=== PATIENT | female | born 1960 | race Caucasian/White ===

== ENCOUNTER → 2020-03-19 12:09 | Outpatient (CLI) | payer SELFPAY ==
[2020-03-19 12:30] LABS: Basophils # 0.1 K/mm3 (0-0.2); Basophils % 0.8 % (0.1-2.0); Eosinophils # 0.4 K/mm3 (0.0-0.4); Eosinophils % 6.7 % (0.1-12.0); Hematocrit 44.4 % (37.0-47.0); Hemoglobin 15.1 g/dL (12.2-16.2); Lymphocytes # 1.9 K/mm3 (0.7-4.5); Lymphocytes % 33.6 % (10-50); Mean Corpuscular HGB Conc 34.1 g/dL (31.8-35.4); Mean Corpuscular Hemoglobin 31.7 pg (27.0-31.2); Mean Platelet Volume 7.4 fl (7.4-10.4); Monocytes # 0.3 K/mm3 (0.1-1.0); Monocytes % 5.5 % (1.7-9.3); Neutrophils # 3.1 K/mm3 (1.8-7.8); Neutrophils % 53.5 % (37.0-80.0); Platelet Count 299 K/mm3 (142-424); Red Blood Count 4.77 M/mm3 (4.20-5.40); Red Cell Distribution Width 13.4 % (11.5-17.5); White Blood Count 5.7 K/mm3 (4.8-10.8)
[2020-03-19 13:04] LABS: Chloride 104 mmol/L (98-107); Potassium 4.2 mmoL/L (3.5-5.1); Sodium 141 mmol/L (136-145)
[2020-03-19 13:06] LABS: Alanine Aminotransferase 11 U/L (12-78); Aspartate Amino Transferase 22 U/L (14-36); Bilirubin,Total 0.9 mg/dl (0.2-1.3); Blood Urea Nitrogen 10 mg/dl (7-17); Estimated Glomerular Filt Rate 86 ml/min (>60); GFR (African American) 104 ML/MIN (>60)
[2020-03-19 13:07] LABS: Albumin Level 4.5 g/dl (3.5-5.0); Albumin/Globulin Ratio 1.4 (1.1-1.8); Alkaline Phosphatase 89 U/L (38-126); Anion Gap 12.2 mEq/L (5-15); Calcium 9.3 mg/dl (8.4-10.2); Carbon Dioxide 29 mmol/L (22.0-30.0); Globulin 3.2 g/dL (1.3-3.2); Glucose 87 mg/dl (74-100); Iron 126 ug/dL (37-170); Total Protein,Serum 7.7 g/dl (6.3-8.2)
[2020-03-19 13:16] LABS: Total Iron Binding Capacity 381 ug/dL (265-497)
[2020-03-19 18:51] LABS: Ferritin 21.2 ng/ml (11.1-264)
[2020-03-20 15:32] LABS: Vitamin B12 798 pg/mL (232-1245)
== END ==
PROVIDERS: Visit Provider Nurse Practitioner Family
DX: E83.10 Disorder of iron metabolism, unspecified (principal); I10 Essential (primary) hypertension; E83.19 Other disorders of iron metabolism
CPT/HCPCS: 36415; 80053; 82607; 82728; 83540; 83550; 85025

== ENCOUNTER → 2020-08-07 16:43 | Outpatient (CLI) | payer MEDICAID, SELFPAY ==
[2020-08-07 20:48] LABS: Coronavirus 19 IgG Antibody Negative (Negative); Coronavirus 19 IgM Antibody Negative (Negative)
== END ==
PROVIDERS: PCP Nurse Practitioner Family; Visit Provider Nurse Practitioner Family
DX: Z03.818 Encounter for observation for suspected exposure to other biological agents ruled out (principal)
CPT/HCPCS: 36415; 86328

== ENCOUNTER → 2021-03-29 13:30 | Outpatient (CLI) | payer SELFPAY ==
[2021-04-01 07:34] LABS: QuantiFERON-TB Gold Plus Negative (Negative)
== END ==
PROVIDERS: Visit Provider Emergency Medicine
DX: Z11.1 Encounter for screening for respiratory tuberculosis (principal)
CPT/HCPCS: 36415; 86480

== ENCOUNTER → 2022-11-24 09:04 | Outpatient (CLI) | payer OTHER, SELFPAY ==
--- NOTE | 2022-11-24 09:04 | XR_ITS ---
FINAL REPORT TECHNIQUE: Bone densitometry calculations of the lumbar spine and hips were obtained. CLINICAL HISTORY: post menopausal FINDINGS: DEXA BONE DENSITY AXIAL SKELETON Using L1-4, the bone mineral density of the spine is 0.909 g/cm2, corresponding to T-score of -1.3. Using the left hip, the bone mineral density of the femoral neck is 0.704 g/cm2, corresponding to a T-score of -1.3. Using the right hip, the bone mineral density of the femoral neck is 0.702 g/cm2, corresponding to a T-score of -1.3. NOTE: T-score: Standard deviation compared with peak bone mass of young adult mean. *Following the recommendations of the International Society of Bone densitometry, classification of hip BMD is based on the lower of two T-scores; total hip or femoral neck. IMPRESSION: Diminished bone mineral density of the lumbar spine and hips consistent with osteopenia. FRAX not reported because: Treated for osteoporosis. Reviewed, Interpreted and Dictated by Donald Swanson MD Transcribed by Kate Humphreys Authenticated and [facility]
== END ==
PROVIDERS: PCP Nurse Practitioner Family; Visit Provider Obstetrics & Gynecology
DX: Z78.0 Asymptomatic menopausal state (principal)
CPT/HCPCS: 77080

== ENCOUNTER → 2022-12-15 14:47 | Outpatient (CLI) | payer OTHER, SELFPAY ==
[2022-12-15 15:23] LABS: Basophils # 0.1 K/mm3 (0-0.2); Basophils % 0.7 % (0.1-2.0); Eosinophils # 0.8 K/mm3 (0.0-0.4); Eosinophils % 12.7 % (0.1-12.0); Hematocrit 44.6 % (37.0-47.0); Hemoglobin 14.9 g/dL (12.2-16.2); Lymphocytes # 1.7 K/mm3 (0.7-4.5); Lymphocytes % 25.8 % (10-50); Mean Corpuscular HGB Conc 33.5 g/dL (31.8-35.4); Mean Corpuscular Hemoglobin 30.9 pg (27.0-31.2); Mean Corpuscular Volume 92.3 fl (81-99); Mean Platelet Volume 7.8 fl (7.4-10.4); Monocytes # 0.4 K/mm3 (0.1-1.0); Monocytes % 6.5 % (1.7-9.3); Neutrophils # 3.6 K/mm3 (1.8-7.8); Neutrophils % 54.2 % (37.0-80.0); Platelet Count 287 K/mm3 (142-424); Red Blood Count 4.83 M/mm3 (4.20-5.40); White Blood Count 6.5 K/mm3 (4.8-10.8)
[2022-12-15 15:34] LABS: Chol/HDL Ratio 3.1 (1-3.5); Cholesterol 200 mg/dl (140-200); HDL Cholesterol 64 mg/dl (40-60); Triglycerides 80 mg/dl (30-150); VLDL Cholesterol 16 mg/dL (0-40)
[2022-12-15 15:46] LABS: Direct LDL Cholesterol 108.79 mg/dL (100-129)
[2022-12-15 16:21] LABS: Iron 108 ug/dL (37-170)
[2022-12-15 16:30] LABS: Total Iron Binding Capacity 309 ug/dL (265-497)
[2022-12-15 16:48] LABS: Vitamin B12 > 1000 pg/mL (239-931)
[2022-12-15 16:57] LABS: Ferritin 37.4 ng/ml (11.1-264)
== END ==
PROVIDERS: PCP Nurse Practitioner Family; Visit Provider Obstetrics & Gynecology
DX: Z00.00 Encounter for general adult medical examination without abnormal findings (principal)
CPT/HCPCS: 36415; 80061; 82607; 82728; 83540; 83550; 85025

== ENCOUNTER 2023-11-20 19:10 | Outpatient (CLI) | payer OTHER, SELFPAY ==
[2023-11-20 18:40] LABS: Basophils # 0.1 K/mm3 (0-0.2); Basophils % 0.9 % (0.1-2.0); Eosinophils # 1.1 K/mm3 (0.0-0.4); Eosinophils % 15.7 % (0.1-12.0); Hematocrit 47.1 % (37.0-47.0); Hemoglobin 15.1 g/dL (12.2-16.2); Lymphocytes # 1.7 K/mm3 (0.7-4.5); Mean Corpuscular HGB Conc 32.1 g/dL (31.8-35.4); Mean Corpuscular Hemoglobin 30.9 pg (27.0-31.2); Mean Corpuscular Volume 96.3 fl (81-99); Mean Platelet Volume 8.7 fl (7.4-10.4); Monocytes # 0.5 K/mm3 (0.1-1.0); Monocytes % 6.6 % (1.7-9.3); Neutrophils # 3.8 K/mm3 (1.8-7.8); Neutrophils % 52.8 % (37.0-80.0); Platelet Count 312 K/mm3 (142-424); Red Blood Count 4.89 M/mm3 (4.20-5.40); Red Cell Distribution Width 13.9 % (11.5-17.5); White Blood Count 7.2 K/mm3 (4.8-10.8)
[2023-11-20 19:19] LABS: Albumin Level 4.3 g/dl (3.5-5.0); Albumin/Globulin Ratio 1.5 (1.1-1.8); Alkaline Phosphatase 89 U/L (38-126); Anion Gap 15.1 mEq/L (5-15); Bilirubin,Total 0.7 mg/dl (0.2-1.3); Blood Urea Nitrogen 9 mg/dl (7-17); Calcium 9.4 mg/dl (8.4-10.2); Carbon Dioxide 22 mmol/L (22.0-30.0); Chloride 108 mmol/L (98-107); Chol/HDL Ratio 4.4 (1-3.5); Cholesterol 262 mg/dl (140-200); Estimated Glomerular Filt Rate 73 ml/min (>60); GFR (African American) 88 ML/MIN (>60); Globulin 2.9 g/dL (1.3-3.2); Glucose 106 mg/dl (74-100); HDL Cholesterol 60 mg/dl (40-60); Potassium 4.1 mmoL/L (3.5-5.1); Sodium 141 mmol/L (136-145); Total Protein,Serum 7.2 g/dl (6.3-8.2); Triglycerides 103 mg/dl (30-150); VLDL Cholesterol 21 mg/dL (0-40)
[2023-11-20 19:21] LABS: Alanine Aminotransferase 15 U/L (12-78); Aspartate Amino Transferase 27 U/L (14-36)
[2023-11-20 19:28] LABS: Hemoglobin A1C 5.3 % (4.0-6.0)
[2023-11-20 19:31] LABS: Direct LDL Cholesterol 143.95 mg/dL (100-129)
[2023-11-20 19:38] LABS: 25-OH Vitamin D, Total 42.9 ng/mL (30-100)
[2023-11-20 19:51] LABS: Thyroid Stimulating Hormone 1.02 uIU/mL (0.465-4.68)
== END 2023-11-20 23:59 ==
LOC: LAB.DROPOF 19:10
PROVIDERS: PCP Family Medicine; Visit Provider Family Medicine
DX: I10 Essential (primary) hypertension (principal); R07.89 Other chest pain; R79.89 Other specified abnormal findings of blood chemistry; R73.09 Other abnormal glucose; R53.83 Other fatigue; R60.0 Localized edema; E78.5 Hyperlipidemia, unspecified; M85.89 Other specified disorders of bone density and structure, multiple sites; Z87.891 Personal history of nicotine dependence; Z79.899 Other long term (current) drug therapy
CPT/HCPCS: 80053; 80061; 82306; 83036; 84443; 85025

== ENCOUNTER 2023-12-04 11:55 | Outpatient (CLI) | payer OTHER, SELFPAY ==
[2023-12-04] VITALS (7 sets, daily range): BP systolic 111–162; BP diastolic 67–97; PULSE 47–74; RESP 16–18; O2SAT 96–100; BMI 29.1
--- NOTE | 2023-12-04 11:56 | CT_ITS ---
APPROVED REPORT Caddy: CLINICAL INDICATION Chest Pain TECHNIQUE Image Acquisition: A 128 slice MDCT scanner (ToolWirea View) was used for data acquisition. A noncontrast coronary calcium scan was performed. A CT attenuation threshold of 130 Hounsfield units (HU) was used for the detection of calcium in contiguous voxels of 1 sq mm in area to be counted as individual lesions. Bolus tracking in the ascending aorta with a threshold of 180 HU was performed. Immediately afterwards, ECG synchronized cardiac CT was then performed from the cardiac base to apex using retrospective gating with ECG tube current modulation. A total of 85 mL of Isovue 370 mg/mL contrast medium was administered at 5 mL/sec followed by a saline flush using a biphasic injection protocol. A tube voltage of 120 KVp was used. The patient received the following medications prior to the cardiac CT. 50 mg of oral metoprolol 15 mg of oral ivabradine 0.8 mg of sublingual nitroglycerin The average heart rate at the time of acquisition was 45 bpm and regular. Image Reconstruction Transaxial images were reconstructed at 0.67 mm slide thickness. Data was reviewed interactively on an advanced workstation capable of 2 and 3-dimensional displays in all conventional reconstruction formats, including multiplanar reformations, maximum intensity projections, curved multiplanar reformations, and volume rendered reconstructions. When applicable, selected routine images describing the relevant coronary anatomy and pathology were saved and sent to PACS. Complications None Technical Quality Overall image quality was good. Coronary artery opacification was adequate. Total DLP (Dose-Length Product) is 1900.1 mGy-cm. The reported value represents the total of one or more individual components during the CT acquisition of this date and at this time, and as such, the same value may appear in more than one CT report depending on the interpreting/reporting physicians. COMPARISON None FINDINGS CT Coronary Calcium Scoring LMA (Left Main Artery) = 20 LAD (Left Anterior Descending) = 9 LCX (Left Coronary Circumflex) = 0 RCA (Right Coronary Artery) = 0 Total Calcium Score = 29 using the AJ-130 method. The observed calcium score of 29 is at 75th percentile for subjects of the same age, sex, and race/ethnicity. The interpretation of the calcium heart score is based on the following continuum*: 0 = no calcified plaque detected (risk of coronary artery disease is very low ??? less than 5%) 1-10 = calcium detected in extremely minimal levels (risk of coronary diseases is still low ??? less than 10%) 11-100 = mild levels of plaque detected with certainty (mild or minimal narrowing of heart arteries is likely) 101-400 = definite,at least moderate levels of plaque detected (relatively high risk of a heart attack within 3-5 years) >401-999 = extensive levels of plaque detected (high risk of heart attack, high levels of vascular disease are present, high likelihood of at least one significant coronary narrowing) *The calcium heart score quantifies the burden of coronary calcification/plaque in the coronary arteries. The calcium heart score is not able to evaluate the presence or burden of non-calcified (i.e. soft) plaque. There is no identifiable calcification in the aortic valve, mitral annulus or mitral valve, pericardium, or myocardium. Coronary CT Angiography The coronary arterial system is right dominant. Quantitative Stenosis Grading: Left Main (LM): The left main originates normally from the left sinus of Valsalva. The LM trifurcates into the left anterior descending artery, ramus intermedius, and left circumflex artery. There is a focus of calcified plaque in the distal LM, but without luminal stenosis. Left Anterior Descending (LAD) and Diagonal Branches: The LAD gives off 3 diagonal branch(es). There is a focus of calcified plaque in the proximal, but without luminal stenosis. . There is no evidence of LAD-myocardial bridge. Ramus-intermedius (RI): There is a focus of calcified plaque in the proximal RI, but without luminal stenosis. Left Circumflex (LCX) and Obtuse Marginals (OM): The LCX gives off 1 Obtuse Marginal (OM) branch(es). The LCx and its branches are patent with no evidence of atherosclerosis. Right Coronary Artery (RCA): The RCA originates normally from the right sinus of Valsalva. The RCA gives off a posterior descending artery (PDA) and posterolateral (PL) branches. The RCA and its branches are patent with no evidence of atherosclerosis. Non-Coronary Cardiac Findings: Analysis of the left ventricular (LV) structure and function was performed after 3-D reconstruction of the LV from axial images, with user-corrected automatic contouring for assessment of LV volumes and user-defined reconstruction from oblique planes for measurement of 3-D cardiac structure and function. -The left ventricle systolic function is normal. -There is no left atrial appendage filling defect. Two right pulmonary veins and two left pulmonary veins drain normally into the left atrium. -No pericardial thickening or calcification. -Central and branch pulmonary arteries in the [id number] are unremarkable. -Thoracic aorta within the visualized thoracic aortic-branches in the [id number] is unremarkable. Extracardiac Structures No significant extra-cardiac findings. Note, however, that this study is focused on the cardiac findings. IMPRESSION -Presence of coronary calcification with an Agatston score = 29 using the AJ-130 method. -The observed calcium score of 29 is at 75th percentile for subjects of the same age, sex, and race/ethnicity. -No evidence of significant flow-limiting atherosclerosis of the coronary arteries. -CAD-RADS 1. Management recommendations per ACC/AHA guidelines*, as clinically appropriate. *Recommendations: CAD RADS 0: Reassurance. Consider non-atherosclerotic causes of chest pain. CAD RADS 1: Consider non-atherosclerotic causes of chest pain. Consider preventive therapy and risk factor modification. CAD RADS 2: Consider non-atherosclerotic causes of chest pain. Consider preventive therapy and risk factor modification, particularly for patients with nonobstructive plaque in multiple segments. CAD RADS 3: Consider further functional testing. Consider symptom-guided anti-ischemic and preventive pharmacotherapy as well as risk factor modification per published guideline statements. CAD RADS 4A: Consider further functional testing or invasive coronary angiography with revascularization per published guideline statements. Consider symptom-guided anti-ischemic and preventive pharmacotherapy as well as risk factor modification per published guideline statements. CAD RADS 4B: Invasive coronary angiography recommended with revascularization per published guideline statements. Consider symptom-guided anti-ischemic and preventive pharmacotherapy as well as risk factor modification per published guideline statements. CAD RADS 5: Consider invasive angiography and/or viability assessment with revascularization per published guideline statements. Consider symptom-guided anti-ischemic and preventive pharmacotherapy as well as risk factor modification per published guideline statements. CRITICAL RESULT None COMMUNICATION Per this written report The coronary and cardiac findings of this CCTA were reviewed, reported, and signed by Jason Coto MD (Auto [employer] Service Mechanic) Conclusion Electronically signed by : Kayla Coto MD 12/05/2023 12:10:41
[2023-12-04] MEDS: IVABRADINE HCL 7.5MG TABLET 15 MG PO (12:35)
[2023-12-04] MEDS: METOPROLOL TARTRATE 50MG TABLET 50 MG (12:35)
[2023-12-04] MEDS: NITROGLYCERIN 0.4MG SL TABLET 0.800000000000000044 MG SL (13:24)
--- NOTE | 2023-12-04 13:48 | CA_ITS ---
APPROVED REPORT EXAM: Comprehensive 2D, Doppler, and color-flow Echocardiogram Paper Wood Cutter: Courtney Desouza RDCS Ht: 5 ft 5 in Wt: 175lbs BSA: 1.87 BP: 116/70 mmHg Indications: Angina M-Mode Dimensions RVDd 2.62 cm (0.9-2.6) LA Diam 3.33 cm (1.9-4.0) LVDd 5.11 cm (3.5-5.7) LVDs 3.70 cm (3.5-5.7) IVSd 0.71 cm (0.6-1.1) PWd 0.67 cm (0.6-1.1) EF (Teich) 53.30% FS 27.60% EDV (Teich) 124.40 mL ESV (Teich) 58.10 mL LV Diastology E Decel Time 173 (160-240 msec) E/A Ratio 1.3 Mitral Valve MV E Max Alexsander. 101.0 (40-130 cm/s) MV A Velocity 79.0 (40-130 cm/s) E/A Ratio 1.27 MV PHT 51.0 ms Tricuspid Valve TR P. Velocity 262.00 cm/s RAP Estimate 10.00 mmHg RVSP 37.40 mmHg Left Ventricle The left ventricle is normal size. The left ventricular systolic function is normal. The left ventricular ejection fraction is within the normal range. There is normal left ventricular wall thickness. There is normal LV segmental wall motion. The left ventricular diastolic function is normal. LVEF is 55%. Right Ventricle The right ventricle is normal size. The right ventricular systolic function is normal. Atria The left atrium size is normal. The right atrium size is normal. There is no Doppler evidence of interatrial shunt. Aortic Valve The aortic valve is mildly thickened. Trace aortic regurgitation. There is no aortic valvular stenosis. Mitral Valve The mitral valve leaflets are mildly thickened. Mild mitral regurgitation. No evidence of mitral valve stenosis. Tricuspid Valve The tricuspid valve leaflets are thin and pliable. Mild tricuspid regurgitation. RVSP is 25-30 mmHg. Pulmonic Valve The pulmonary valve is normal in structure. Trace pulmonic regurgitation. Great Vessels The aortic root is normal in size. The ascending aorta is normal in size. IVC is normal in size and collapses >50% with inspiration. Pericardium There is no pericardial effusion. Other Information Study Quality: Fair Conclusion Normal biventricular systolic function. Mild MR, mild TR. RVSP 25-30 mmHg. Electronically signed by : Kayla Coto MD 12/05/2023 23:21:44
[2023-12-04] MEDS: 0.9 % SODIUM CHLORIDE 50 ML VIAL IV (13:52)
[2023-12-04] MEDS: SODIUM CHLORIDE 0.9% 10ML SYR (RAD ONLY) 10 ML IV (13:52)
[2023-12-04] MEDS: IOPAMIDOL-370 (76%);100ML BOTTLE 85 ML IV (13:52)
--- NOTE | 2023-12-04 14:18 | MM_ITS ---
PROCEDURE INFORMATION: Exam: MG Bilateral Screening 3D Mammography Exam date and time: 12/04/2023 2:22 PM Age: 63 years old Clinical indication: Screening. A maternal cousin had breast cancer. TECHNIQUE: Imaging protocol: Bilateral Screening tomosynthesis and 2D mammography including computer-aided detection (CAD) when performed. COMPARISON: 1. MG SUE SCRN MAMMO W/CAD BILAT 09/07/2022 3:25 PM 2. MG SUE SCRN MAMMO W/CAD BILAT 06/16/2021 5:14 PM 3. MG SUE SCRN MAMMO W/CAD BILAT 06/20/2020 8:59 AM FINDINGS: MAMMOGRAPHY: Breast composition: There are scattered areas of fibroglandular density. Mass: No suspicious mass. Architectural distortion: None. Calcifications: No suspicious calcifications. Asymmetric density: None. Skin thickening: None. Axillary adenopathy: None. IMPRESSION: No mammographic evidence of malignancy. Annual screening is recommended unless otherwise clinically indicated. ASSESSMENT: BI-RADS Category 1: Negative
== END 2023-12-04 13:58 | disposition home or self-care (01) ==
PROVIDERS: PCP Family Medicine; Visit Provider Family Medicine
DX: I20.89 Other forms of angina pectoris (principal); R60.9 Edema, unspecified; C50.919 Malignant neoplasm of unspecified site of unspecified female breast
CPT/HCPCS: 75571; 75574; 77063; 77067; 93306; Q9967

== ENCOUNTER 2024-11-21 11:25 | Outpatient (CLI) | payer OTHER, SELFPAY ==
[2024-11-21 12:09] LABS: Basophils % 0.7 % (0.1-2.0); Eosinophils # 0.5 K/mm3 (0.0-0.4); Eosinophils % 10.6 % (0.1-12.0); Hematocrit 43.2 % (37.0-47.0); Hemoglobin 14.9 g/dL (12.2-16.2); Lymphocytes # 1.3 K/mm3 (0.7-4.5); Lymphocytes % 30.3 % (10-50); Mean Corpuscular HGB Conc 34.5 g/dL (31.8-35.4); Mean Corpuscular Hemoglobin 31.4 pg (27.0-31.2); Mean Corpuscular Volume 90.9 fl (81-99); Mean Platelet Volume 9.4 fl (7.4-10.4); Monocytes # 0.4 K/mm3 (0.1-1.0); Monocytes % 9.5 % (1.7-9.3); Neutrophils # 2.1 K/mm3 (1.8-7.8); Neutrophils % 48.7 % (37.0-80.0); Platelet Count 298 K/mm3 (142-424); Red Blood Count 4.75 M/mm3 (4.20-5.40); Red Cell Distribution Width 12.9 % (11.5-17.5); White Blood Count 4.2 K/mm3 (4.8-10.8)
[2024-11-21 12:30] LABS: Hemoglobin A1C 5.1 % (4.0-6.0)
[2024-11-21 12:55] LABS: 25-OH Vitamin D, Total 64.9 ng/mL (30-100)
[2024-11-21 13:20] LABS: Alanine Aminotransferase 19 U/L (12-78); Albumin Level 4.7 g/dl (3.5-5.0); Albumin/Globulin Ratio 1.6 (1.1-1.8); Alkaline Phosphatase 73 U/L (38-126); Anion Gap 11.2 mEq/L (5-15); Aspartate Amino Transferase 29 U/L (14-36); Bilirubin,Total 1.1 mg/dl (0.2-1.3); Blood Urea Nitrogen 9 mg/dl (7-17); Calcium 9.4 mg/dl (8.4-10.2); Carbon Dioxide 26 mmol/L (22.0-30.0); Chloride 107 mmol/L (98-107); Chol/HDL Ratio 3.3 (1-3.5); Cholesterol 213 mg/dl (140-200); Estimated Glomerular Filt Rate 63 ml/min (>60); GFR (African American) 77 ML/MIN (>60); Glucose 84 mg/dl (74-100); HDL Cholesterol 64 mg/dl (40-60); Potassium 4.2 mmoL/L (3.5-5.1); Sodium 140 mmol/L (136-145); Total Protein,Serum 7.7 g/dl (6.3-8.2); Triglycerides 109 mg/dl (30-150); VLDL Cholesterol 22 mg/dL (0-40)
[2024-11-21 13:35] LABS: Direct LDL Cholesterol 109.44 mg/dL (100-129)
[2024-11-21 13:50] LABS: Thyroid Stimulating Hormone 1.25 uIU/mL (0.465-4.68)
[2024-11-21 14:10] LABS: Vitamin B12 > 1000 pg/mL (239-931)
== END 2024-11-21 23:59 | disposition home or self-care (01) ==
LOC: LAB 11:25
PROVIDERS: PCP Family Medicine; Visit Provider Family Medicine
DX: E78.5 Hyperlipidemia, unspecified (principal); I10 Essential (primary) hypertension; R53.83 Other fatigue; Z13.1 Encounter for screening for diabetes mellitus; Z78.9 Other specified health status
CPT/HCPCS: 36415; 80053; 80061; 82306; 82607; 83036; 84443; 85025

== ENCOUNTER 2024-11-27 10:08 | Outpatient (CLI) | payer OTHER, SELFPAY ==
[2024-11-27 10:38] LABS: Basophils # 0.1 K/mm3 (0-0.2); Basophils % 0.8 % (0.1-2.0); Eosinophils # 0.4 K/mm3 (0.0-0.4); Eosinophils % 5.8 % (0.1-12.0); Hematocrit 45.3 % (37.0-47.0); Hemoglobin 15.4 g/dL (12.2-16.2); Lymphocytes # 1.5 K/mm3 (0.7-4.5); Lymphocytes % 22.9 % (10-50); Mean Corpuscular Volume 91.3 fl (81-99); Mean Platelet Volume 9.3 fl (7.4-10.4); Monocytes # 0.6 K/mm3 (0.1-1.0); Monocytes % 9.7 % (1.7-9.3); Neutrophils # 3.9 K/mm3 (1.8-7.8); Neutrophils % 60.5 % (37.0-80.0); Platelet Count 340 K/mm3 (142-424); Red Blood Count 4.96 M/mm3 (4.20-5.40); Red Cell Distribution Width 13.1 % (11.5-17.5); White Blood Count 6.5 K/mm3 (4.8-10.8)
== END 2024-11-27 23:59 | disposition home or self-care (01) ==
PROVIDERS: PCP Family Medicine; Visit Provider Family Medicine
DX: I10 Essential (primary) hypertension (principal); R00.0 Tachycardia, unspecified
CPT/HCPCS: 36415; 85025; 93270

== ENCOUNTER 2024-12-10 10:43 | Outpatient (CLI) | payer OTHER, SELFPAY ==
--- NOTE | 2024-12-10 | CA_ITS ---
APPROVED REPORT Exam: Exercise Treadmill Technologist: Jodi Perez Ht: 5 ft 5 in Wt: 180 lbs BSA: 1.89 m2 HR: 74 bpm BP: 142/87 mmHg Rhythm: NSR Stress Test Details Test: Exercise stress testing was performed using a Carlos protocol. HR Resting HR: 74 bpm Max Heart Rate (APMHR): 157 bpm Max HR Achieved: 146 bpm Target HR (85% APMHR): 133 bpm % of APMHR: 93 Recovery HR: 84 bpm HR response to stress: Normal HR response to stress BP Resting BP: 142.0/87.0 mmHg Max BP: 166.0/86.0 mmHg Recovery BP: 127.0/77.0 mmHg BP response to stress: Normal blood pressure response to stress. ECG Resting ECG: Normal sinus rhythm Stress EC.[address] depression Clinical Exercise duration: 6:34 min Exercise capacity: 8 METs Stress ECG Conclusion Symptoms: Foot pain due to plate in foot. Arrhythmias/Ectopy: - ST-T Changes: < 0.[address] depression Conclusion: Average exercise capacity No significant ST changes at peak stress Electronically signed by : Kayla Coto MD 12/11/2024 00:28:48
--- OUTSIDE RECORDS SUMMARY | 2024-12-12 21:06 | XMS_ITS | Data Portability ---
Author Organization [facility] HILLARY Trinh ADMIN Address [address] [place] [id number] Care Team Providers Care Brand Recorder Name Role Phone MC TAYLOR Primary Care Provider Unav ailable Assessment No assessment recorded. Plan of Treatment Reminders Order Date Submit Date Provider Last Modified By Organization Details Last Modified Time Details Appointments None recorded. Lab thyroid panel, serum 2022 023 LELAND [facility], [address], [address], [place], [address], 3 10:37:25 vitamin D, 25-hydroxy, total, serum 2022 023 DONALD [facility], [address], [address], [place], [address], 3 10:37:27 vitamin B12, serum 2022 023 DONALD [facility], [address], [address], [place], [address], 3 10:37:28 magnesium, serum or plasma 2022 023 DONALD [facility], [address], [place], [address], 3 10:37:29 noninvasive colorectal cancer DNA + occult blood screening, QL, stool 2022 023 2 [facility] (Cologuard Orders Only), [address], [address], [place], [address], 10:18:11 CMP, serum or plasma 2022 023 DONALD [facility], [address], [address], [place], [address], 10:37:23 CBC w/ auto diff 2022 023 DONALD [facility], [address], [address], [place], [address], 10:37:21 lipid panel, serum 2022 023 LELAND [facility], [address], [address], [place], [address], 10:37:24 HbA1c (hemoglobin A1c), blood 2022 023 LELAND [facility], [address], [address], [place], [address], 10:37:26 Referral None recorded. Procedures None recorded. Surgeries None recorded. Imaging None recorded. Medication Orders None recorded. Patient TargetsNo targets recorded. Patient InstructionsNo instructions recorded. Reason for Referral None Reported. Results Created Date Observation Date Name Description Value Unit Range Abnormal Flag Note LastModifiedBy Organization Detail LastModifiedTime 06/06/2006/07/2023 CBC WITH DIFFE RENTI AL/PL ATELE T WBC 6.4 x10e3 /uL 3.4-10 .8 Not Available [facility] ([facility]) [address] [facility], [place], [address], 06/07/2023 10:37:21 06/06/2006/07/2023 CBC WITH DIFFE RENTI AL/PL ATELE T RBC 4.80 x10e6 /uL 3.77-5 .28 Not Available [facility] ([facility]) [address] [facility], [place], [address], 06/07/2023 10:37:21 06/06/20 23 06/07/2023 CBC WITH DIFFE RENTI AL/PL ATELE T hemoglobin 14.7 g/dL 11.1-1 5.9 Not Available [facility] ([facility]) [address] [facility], [place], [address], 06/07/2023 10:37:21 06/06/20 23 06/07/2023 CBC WITH DIFFE RENTI AL/PL ATELE T hematocrit 43.5 % 34.0-4 6.6 Not Available [facility] ([facility]) [address] [facility], [place], [address], 06/07/2023 10:37:21 06/06/20 23 06/07/2023 CBC WITH DIFFE RENTI AL/PL ATELE T MCV 91 fL 79-97 Not Available [facility] ([facility]) [address] [facility], [place], [address], 06/07/2023 10:37:21 06/06/20 23 06/07/2023 CBC WITH DIFFE RENTI AL/PL ATELE T MCH 30.6 pg 26.6-3 3.0 Not Available [facility] ([facility]) [address] [place], [address], 06/07/2023 10:37:21 06/06/20 23 06/07/2023 CBC WITH DIFFE RENTI AL/PL ATELE T MCHC 33.8 g/dL 31.5-3 5.7 Not Available [facility] ([facility]) [address] [place], [address], 06/07/2023 10:37:21 06/06/20 23 06/07/2023 CBC WITH DIFFE RENTI AL/PL ATELE T RDW 12.1 % 11.7-1 5.4 Not Available [facility] ([facility]) [address] [place], [address], 06/07/2023 10:37:21 06/06/20 23 06/07/2023 CBC WITH DIFFE RENTI AL/PL ATELE T platelets 323 x10e3 /uL 150-45 0 Not Available [facility] ([facility]) [address] [facility], [place], [address], 06/07/2023 10:37:21 06/06/20 23 06/07/2023 CBC WITH DIFFE RENTI AL/PL ATELE T neutrophils 61 % not estab. Not Available [facility] ([facility]) [address] [facility], [place], [address], 06/07/2023 10:37:21 06/06/20 23 06/07/2023 CBC WITH DIFFE RENTI AL/PL ATELE T lymphs 26 % not estab. Not Available [facility] ([facility]) [address] [facility], [place], [address], 06/07/2023 10:37:21 06/06/20 23 06/07/2023 CBC WITH DIFFE RENTI AL/PL ATELE T monocytes 8 % not estab. Not Available [facility] ([facility]) [address] [facility], [place], [address], 06/07/2023 10:37:21 06/06/20 23 06/07/2023 CBC WITH DIFFE RENTI AL/PL ATELE T eos 4 % not estab. Not Available [facility] ([facility]) [address] [facility], [place], [address], 06/07/2023 10:37:21 06/06/20 23 06/07/2023 CBC WITH DIFFE RENTI AL/PL ATELE T basos 1 % not estab. Not Available [facility] ([facility]) [address] [facility], [place], [address], 06/07/2023 10:37:21 06/06/20 23 06/07/2023 CBC WITH DIFFE RENTI AL/PL ATELE T immature cells STATION EXAMINER Not Available [facility] ([facility]) [address] [place], [address], 06/07/2023 10:37:21 06/06/20 23 06/07/2023 CBC WITH DIFFE RENTI AL/PL ATELE T neutrophils (absolute) 3.9 x10e3 /uL 1.4-7. 0 Not Available [facility] ([facility]) [address] [place], [address], 06/07/2023 10:37:21 06/06/20 23 06/07/2023 CBC WITH DIFFE RENTI AL/PL ATELE T lymphs (absolute) 1.7 x10e3 /uL 0.7-3. 1 Not Available [facility] ([facility]) [address] [place], [address], 06/07/2023 10:37:21 06/06/20 23 06/07/2023 CBC WITH DIFFE RENTI AL/PL ATELE T monocytes(ab solute) 0.5 x10e3 /uL 0.1-0. 9 Not Available [facility] ([facility]) [address] [place], [address], 06/07/2023 10:37:21 06/06/20 23 06/07/2023 CBC WITH DIFFE RENTI AL/PL ATELE T eos (absolute) 0.3 x10e3 /uL 0.0-0. 4 Not Available [facility] ([facility]) [address] [place], [address], 06/07/2023 10:37:21 06/06/20 23 06/07/2023 CBC WITH DIFFE RENTI AL/PL ATELE T baso (absolute) 0.0 x10e3 /uL 0.0-0. 2 Not Available [facility] ([facility]) [address] [place], [address], 06/07/2023 10:37:21 06/06/20 23 06/07/2023 CBC WITH DIFFE RENTI AL/PL ATELE T immature granulocytes 0 % not estab. Not Available [facility] ([facility]) [address] [facility], [place], [address], 06/07/2023 10:37:21 06/06/20 23 06/07/2023 CBC WITH DIFFE RENTI AL/PL ATELE T immature grans (abs) 0.0 x10e3 /uL 0.0-0. 1 Not Available [facility] ([facility]) [address] [facility], [place], [address], 06/07/2023 10:37:21 06/06/2006/07/2023 CBC WITH DIFFE RENTI AL/PL ATELE T NRBC STATION EXAMINER Not Available [facility] ([facility]) [address] [facility], [place], [address], 06/07/2023 10:37:21 06/06/2006/07/2023 CBC WITH DIFFE RENTI AL/PL ATELE T hematology comments: STATION EXAMINER Not Available [facility] ([facility]) [address] [facility], [place], [address], 06/07/2023 10:37:21 06/06/20 23 06/07/2023 COMP. METAB OLIC PANEL (14) glucose 91 mg/dL 70-99 Not Available [facility] ([facility]) [address] [facility], [place], [address], 06/07/2023 10:37:23 06/06/20 23 06/07/2023 COMP. METAB OLIC PANEL (14) BUN 10 mg/dL 8-27 Not Available [facility] ([facility]) [address] [facility], [place], [address], 06/07/2023 10:37:23 06/06/20 23 06/07/2023 COMP. METAB OLIC PANEL (14) creatinine 0.93 mg/dL 0.57-1 .00 Not Available [facility] ([facility]) [address] [facility] [place], [address], 06/07/2023 10:37:23 06/06/20 23 06/07/2023 COMP. METAB OLIC PANEL (14) eGFR 70 mL/mi n/1.7 3 >59 Not Available [facility] ([facility]) [address] [facility] [place], [address], 06/07/2023 10:37:23 06/06/20 23 06/07/2023 COMP. METAB OLIC PANEL (14) BUN/creatini ne ratio 11 12-28 below low normal Not Available [facility] ([facility]) [address] [facility] [place], [address], 06/07/2023 10:37:23 06/06/20 23 06/07/2023 COMP. METAB OLIC PANEL (14) sodium 143 mmol/ L 134-14 4 Not Available [facility] ([facility]) [address] [facility] [place], [address], 06/07/2023 10:37:23 06/06/20 23 06/07/2023 COMP. METAB OLIC PANEL (14) potassium 4.5 mmol/ L 3.5-5. 2 Not Available [facility] ([facility]) [address] [place], [address], 06/07/2023 10:37:23 06/06/20 23 06/07/2023 COMP. METAB OLIC PANEL (14) chloride 104 mmol/ L 96-106 Not Available [facility] ([facility]) [address] [place], [address], 06/07/2023 10:37:23 06/06/20 23 06/07/2023 COMP. METAB OLIC PANEL (14) carbon dioxide, total 21 mmol/ L 20-29 Not Available [facility] ([facility]) [address] [place], [address], 06/07/2023 10:37:23 06/06/20 23 06/07/2023 COMP. METAB OLIC PANEL (14) calcium 9.7 mg/dL 8.7-10 .3 Not Available [facility] ([facility]) [address] [facility] [place], [address], 06/07/2023 10:37:23 06/06/20 23 06/07/2023 COMP. METAB OLIC PANEL (14) protein, total 7.7 g/dL 6.0-8. 5 Not Available [facility] ([facility]) [address] [facility] [place], [address], 06/07/2023 10:37:23 06/06/20 23 06/07/2023 COMP. METAB OLIC PANEL (14) albumin 4.7 g/dL 3.9-4. 9 Not Available [facility] ([facility]) [address] [facility], [place], [address], 06/07/2023 10:37:23 06/06/20 23 06/07/2023 COMP. METAB OLIC PANEL (14) globulin, total 3.0 g/dL 1.5-4. 5 Not Available [facility] ([facility]) [address] [facility] [place], [address], 06/07/2023 10:37:23 06/06/20 23 06/07/2023 COMP. METAB OLIC PANEL (14) A/G ratio 1.6 1.2-2. 2 Not Available [facility] ([facility]) [address] [facility] [place], [address], 06/07/2023 10:37:23 06/06/20 23 06/07/2023 COMP. METAB OLIC PANEL (14) bilirubin, total 0.7 mg/dL 0.0-1. 2 Not Available [facility] ([facility]) [address] [facility] [place], [address], 06/07/2023 10:37:23 06/06/20 23 06/07/2023 COMP. METAB OLIC PANEL (14) alkaline phosphatase 80 IU/L 44-121 Not Available [facility] ([facility]) [address] [place], [address], 06/07/2023 10:37:23 06/06/20 23 06/07/2023 COMP. METAB OLIC PANEL (14) AST (SGOT) 13 IU/L 0-40 Not Available [facility] ([facility]) [address] [place], [address], 06/07/2023 10:37:23 06/06/20 23 06/07/2023 COMP. METAB OLIC PANEL (14) ALT (SGPT) 9 IU/L 0-32 Not Available [facility] ([facility]) [address] [place], [address], 06/07/2023 10:37:23 06/06/20 23 06/07/2023 LIPID PANEL cholesterol, total 208 mg/dL 100-19 9 above high normal Not Available [facility] ([facility]) [address] [place], [address], 06/07/2023 10:37:24 06/06/20 23 06/07/2023 LIPID PANEL triglyceride s 103 mg/dL 0-149 Not Available [facility] ([facility]) [address] [place], [address], 06/07/2023 10:37:24 06/06/20 23 06/07/2023 LIPID PANEL HDL cholesterol 68 mg/dL >39 Not Available [facility] ([facility]) [address] [place], [address], 06/07/2023 10:37:24 06/06/20 23 06/07/2023 LIPID PANEL VLDL cholesterol breonna 18 mg/dL 5-40 Not Available [facility] ([facility]) [address] [place], [address], 06/07/2023 10:37:24 06/06/20 23 06/07/2023 LIPID PANEL LDL chol calc ([facility]) 122 mg/dL 0-99 above high normal Not Available [facility] ([facility]) [address] [place], [address], 06/07/2023 10:37:24 06/06/20 23 06/07/2023 LIPID PANEL comment: STATION EXAMINER Not Available [facility] ([facility]) [address] [place], [address], 06/07/2023 10:37:24 06/06/20 23 06/07/2023 THYRO ID PROFI LE II TSH 1.260 uIU/m L 0.450- 4.500 Not Available [facility] ([facility]) [address] [place], [address], 06/07/2023 10:37:25 06/06/20 23 06/07/2023 THYRO ID PROFI LE II thyroxine (T4) 9.6 ug/dL 4.5-12 .0 Not Available [facility] ([facility]) [address] [place], [address], 06/07/2023 10:37:25 06/06/20 23 06/07/2023 THYRO ID PROFI LE II T3 uptake 28 % 24-39 Not Available [facility] ([facility]) [address] [place], [address], 06/07/2023 10:37:25 06/06/20 23 06/07/2023 THYRO ID PROFI LE II free thyroxine index 2.7 1.2-4. 9 Not Available [facility] ([facility]) [address] [place], [address], 06/07/2023 10:37:25 06/06/20 23 06/07/2023 THYRO ID PROFI LE II triiodothyro nine (T3) 101 NG/dL 71-180 Not Available [facility] ([facility]) [address] [facility], [place], [address], 06/07/2023 10:37:25 06/06/2006/07/2023 HEMOG LOBIN A1C hemoglobin A1C 5.3 % 4.8-5. 6 Predi abete s: 5.7 - 6.4 Diabe lan: >6.4 Glyce tamera contr ol for adult s with diabe lan: <7.0 Not Available [facility] ([facility]) [address] [facility], [place], [address], 06/07/2023 10:37:26 06/06/2006/07/2023 VITAM IN D, 25-HY DROXY vitamin D, 25-hydroxy 42.4 NG/mL 30.0-1 00.0 Vitam in D defic iency has been defin ed by the Insti tute of Medic ine and an Endoc rine Socie ty pract ice guide line as a level of serum 25-OH vitam in D less than 20 ng/mL (1,2) . The Endoc rine Socie ty went on to furth er defin e vitam in D insuf ficie ncy as a level betwe en 21 and 29 ng/mL (2). 1. IOM (Inst itute of Medic ine). 2009. Dieta ry refer ence intak es for calci um and D. Nubia aburto [place]: The Natio nal [facility] Press . 2. Milton hernandez MF, Maribell beckett [place], Angeline off-F errar i CRUZ, et al. Evalu ation , treat ment, and preve ntion of vitam in D defic iency : an Endoc rine Socie ty clini breonna pract ice guide line. JCEM. 2010; 96(7) :1911 -30. Not Available [facility] ([facility]) [address] [facility], [place], [address], 06/07/2023 10:37:27 06/06/2006/07/2023 VITAM IN B12 vitamin B12 480 pg/mL 232-12 45 Not Available [facility] ([facility]) [address] [facility], [place], [address], 06/07/2023 10:37:28 06/06/20 23 06/07/2023 MAGNE SIUM magnesium 2.3 mg/dL 1.6-2. 3 Not Available [facility] ([facility]) [address] [facility], [place], [address], 06/07/2023 10:37:29 Result Notes None recorded. Procedures Surgical History Date Name Laterality Status Provider Name and Address Organization Details Recorded Time Appendectomy completed [facility] MARY HUANG - [facility] [place] 06/06/2023 13:52:14 procedure on shoulder completed RASHID FANNIN [place] - [facility] [place] 06/06/2023 13:52:27 [facility] on foot [facility] - [facility] [place] 06/06/2023 13:52:40 Imaging Results None recorded. Procedure Notes None recorded. Medical Equipment None Reported. Allergies No known drug allergies Medications Name Sig Start Date Stop Date Status Note LastModified by Organization Details LastModified Time amoxicillin 500 mg capsule 06/06 completed Not Available Not Available Not Available fluconazole 150 mg tablet 06/06 completed Not Available Not Available Not Available hydrocodone 5 mg-acetamin ophen 325 mg tablet 06/06 completed Not Available Not Available Not Available lisinopril 20 mg tablet TAKE 1 TABLET BY MOUTH ONCE DAILY DIRECTED active Not Available Not Available No t Available amlodipine 5 mg tablet TAKE 1 TABLET BY MOUTH ONCE DAILY DIRECTED active Not Available Not Available No t Available albuterol sulfate HFA 90 mcg/actuati on aerosol inhaler active Not Available Not Available Not Available phentermine 37.5 mg capsule TAKE 1 CAPSULE BY MOUTH ONCE DAILY MUST ADMINISTE R 30 MINUTES BEFORE OR 1 TO 2 HOURS AFTER BREAKFAST 06/06 completed Not Available Not Available Not Available Myrbetriq 50 mg tablet,exte nded release TAKE 1 TABLET BY MOUTH ONCE DAILY 06/06 completed Not Available Not Available Not Available Zerviate 0.24 % eye drops in a dropperette INSTILL 1 DROP INTO EACH EYE TWICE DAILY active Not Available Not Available No t Available Vitals Date Recorded Body weight Body mass index (BMI) Body height Body temperature Oxygen saturation Oxygen saturation in Arterial blood by Pulse oximetry Heart rate Systolic blood pressure Diastolic blood pressure Provider Name and Address Organization Details Last Updated DateTime 3 42757.2 5 g 27.4 kg/m2 165.1 cm 97.7 [degF] 99 % 99 % 87 /min 126 mm[Hg] 72 mm[Hg] RASHID HERNANDEZ [facility] [place] 3 13:50:28 Social History Question Answer Notes LastModified by Organizat ion Details LastModified Time Tobacco Smoking Status Never Smoker RASHID martin, [facility] [place] 06/06/2023 13:51:57 Do You Or Have You Ever Used Any Other Forms Of Tobacco Or Nicotine? No [email or web address] Information not available 06/06/2023 Sex: Unknown Functional Status None recorded. Mental Status None recorded. Family History Nothing Reported. Medical History No medical history recorded. Gynecological HistoryNo gynecological history recorded. Obstetrics History GPAL:G 0 P 0 0 0 0 Past Encounters Encounter ID Performer Location Encounter Start Date Encounter Closed Date Diagnosis/Indication Diagnosis SNOMED-CT Code Diagnosis ICD10 Code Diagnosis Note [id number] Mc Reinoso in, COMPO CONVEYOR OPERATOR [facility] [address] [facility] [address] [place] [address] 06/06/2023 13:35:37 06/06/2023 16:22:49 Adult health examination 232348078 Z00.00 Will check complete bloodwork. Will call with results.Co unseled on dietary modificati ons and healthy eating habits.Cou nseled on decreasing stress levels,Rec ommend yearly eye examsRecom mend regular dental exams/alejandra shena. Thyroid di sorder screening 215275269 Z13.29 Screening for malignant neoplasm of colon 521767041 Z12.11 Patient requests Cologuard. Refuses colonoscop y. Screening for malignant neoplasm of cervix 328493154 Z12.4 Up to date on pelvic exams. Screening for malignant neoplasm of breast 727758030 Z12.39 Patient is up to date. She had mammogram at [facility] recently in 2022. Health Concerns Section Related Observation LastModified by Organization Detai ls LastModified Time None Recorded Concern Status LastModified by Organization Details LastModified Time None Recorded Advance Directives Directive None Recorded Payers Encounter Date Sequence Insurance Name Policy Number Policy Moya Covered Member ID Moya Member ID Guarantor Name 06/06/2023 1 [facility] (MEDICAID REPLACEMENT - HMO) [id number] Leah Burt Edward ot [id number] Leah Tidwell Notes Date Note Type Note Provider Name and Address Organization Details Recorded Time 06/06/2023 text/html patient presents to clinic to establish care. They were seeing Woo Vasquez APRN. She had an annual exam in September 2022. Patient denies any history or family history of cancer.She is not a smoker.She stopped 30 years ago. Denies ETOH use. Denies any illicit drug use.She does not sleep well at night. She is restless at night.Denies any GI issues. Denies any urinary concerns. Last pap/pelvic was 2022. She has an public health epidemiologist in [facility].Patient refuses any covid or flu vaccines today. Mc Taylor, COMPO CONVEYOR OPERATOR [address] , [place], [id number], [facility] [place] [facility] [place] 06/06/2023 15:22:18 OBGyn Episode No OBEpisode recorded.
== END 2024-12-10 23:59 | disposition home or self-care (01) ==
LOC: RT 10:44
PROVIDERS: PCP Family Medicine; Visit Provider Nurse Practitioner
DX: R07.9 Chest pain, unspecified (principal); R94.31 Abnormal electrocardiogram [ECG] [EKG]; R42 Dizziness and giddiness
CPT/HCPCS: 93017; 93018

== ENCOUNTER 2025-07-24 14:42 | Outpatient (CLI) | payer OTHER, SELFPAY ==
--- OUTSIDE RECORDS SUMMARY | 2025-06-17 07:15 | XMS_ITS ---
Author Organization [facility] [place] Address [address] [place] [address] Care Team Providers Care Ventilated Rib Fitter Name Role Phone Kushal Hurtado [phone] Allergies No Known Allergies REASON FOR VISIT Not Feeling Well Medications Medication SIG (Take, Route, Frequency, Duration) Notes Start Date End Date Status Amoxicillin-Pot Clavulanate 875-125 MG 1 tablet Orally every 12 hrs; Duration: 3 day(s) 06/17/2025 Active Stahist AD 25-60 MG 1 tablet as needed Orally every 8 hrs; Duration: 7 days As needed for congestion 06/17/2025 06/24/2025 Active Vitamin D3 10 MCG (400 UNIT) TAKE 1 CAPSULE BY MOUTH ONCE DAILY Oral; Duration: 90 Days Active amLODIPine Besylate 5 MG Oral Active Cetirizine HCl 10 MG TAKE 1 TABLET BY MO UT ONCE DAILY Oral; Duration: 90 Days Active Amoxicillin-Pot Clavulanate 875-125 MG 1 tablet Orally twice a day; Duration: 10 days 06/17/2025 Active Lisinopril 20 MG Oral Act emerald Social History Tobacco Use: Social History Observation Description Date Details (start date - stop date) Never Smoker NA - NA Tobacco Control (Standard) Question Answer Notes Tobacco use: Nonsmoker AUDIT-C (Standard) Question Answer Notes Did you have a drink containing alcohol in the p ast year? No Points 0 Interpretation Negative Problems Problem Type SNOMED Code ICD Code Onset Dates Problem Status W/U Status Risk Notes Problem Overweight (950447930) Overweight (BMI 25.0-29.9) (E66.3) Active confirmed Problem Hypertension (53749710) HTN (hypertension) (I10) Active confirmed Vital Signs Temperature 97.4 degrees Fahrenheit 06/17/20 25 Respiratory Rate 18 /min 06/17/2025 Blood pressure systolic 110 mm Hg 06/17/20 Blood pressure diastolic 78 mm Hg 025 Height 65 in 06/17/2025 Weight 170 lbs 06/17/2025 BMI 28.29 kg/m2 06/17/2025 Oximetry 98 06/17/2025 Encounters Encounter Location Date Provider Diagnosis [id number] [facility] [address] [place] [address] 06/17/2025 Kushal Hurtado Overweight (BMI 25.0-29.9) E66.3 ; Acute maxillary sinusitis, recurrence not specified J01.00 and HTN (hypertension) I10 Assessments Encounter Date Diagnosis (ICD Code) Assessment Notes Treatment Notes Treatment Clinical Notes Section Notes 06/17/2025 Overweight (BMI 25.0-29.9) (ICD-10 - E66.3) Continue healthy eating and exercise. May follow up with [employer] dietitians via a telehealth visit at [email or web address] to help with dietary changes to lower BMI., Learning About Obesity material was published 06/17/2025 Acute maxillary sinusitis, recurrence not specified (ICD-10 - J01.00) Complete the entire course of antibiotics as prescribed, even when symptoms have improved, to prevent a relapse of infection and the development of antibiotic resistance. Visit summary given to and discussed with patient and/or parent who verbalizes understanding and agreement with plan of care., Acute Sinusitis: Care Instructions material was published 06/17/2025 HTN (hypertension) (ICD-10 - I10) 06/17/2025 Other Amoxicillin and Clavulanic Acid material was published Plan Of Treatment Medication Medication Name Sig Start Date Stop Date Notes Amoxicillin-Pot Clavulanate 875-125 MG 1 tablet Orally every 12 hrs; Duration: 3 day(s) 06/17/2025 Stahist AD 25-60 MG 1 tablet as needed O rally every 8 hrs; Duration: 7 days 06/17/2025 06/24/2025 amLODIPine Besylate 5 MG Oral Amoxicillin-Pot Clavulanate 875-125 MG 1 tablet Orally twice a day; Duration: 10 days 06/17/2025 Lisinopril 20 MG Oral Treatment Notes Assessment Notes Overweight (BMI 25.0-29.9) Continue heal thy eating and exercise. May follow up with [employer] dietitians via a telehealth visit at [email or web address] trition to help with dietary changes to lower BMI., Learning About Obesity material was published Acute maxillary sinusitis, r ecurrence not specified Complete the entire course of antibiotic s as prescribed, even when symptoms have improved, to prevent a relapse of infection and the development of antibiotic resistance. Visit summary given to and discussed with patient and/or parent who verbalizes understanding and agreement with plan of care., Acute Sinusitis: Care Instructions material was published Other Amoxicillin and Clav ulanic Acid material was published Next Appt Details Follow Up: 5-7 days if sympt oms worsen, Reason: Progress Notes * Leah CHAHALDOB: (64 yo F)Acc No.[id number]:06/17/2025 Progress Note Patient: Ashlee Leah CATALAN Provider: Carmel Hurtado :1960 A ge:64 Y S ex:Female Date:06/17/2025 External Visit ID:[id number] Address:[address] [place] [address], [place], [id number] Subjective: * Chief Complaints: * 1 . Not Feeling Well. * HPI: D epression/Anxiety Screening: PHQ-2 (2015 Edition) L ittle interest or pleasure in doing things? N ot at all, F eeling down, depressed, or hopeless? N ot at all, T otal Score 0 . C onstitutional: Presents with sinus congestion, sore throat, bilateral ear pain x 2 weeks [place]ame back from [place] 2 months ago and has been struggling with sinus congestion since Medication: mucinex, partha without relief Denies fever. N ose.: sinusitis management r kvng for prescribing Antibiotic regimen m edical reason, w as sinusitis caused due to bacterial infection? y es, O nset of Symptoms: 0 05/31/2025. * ROS: C ONSTITUTIONAL: no c hills. n o f ever. E ARS: sensation of fullness y es. N OSE: congestion y es. M OUTH AND THROAT: post nasal drip y es. * Medical History: H TN (hypertension). * Surgical History: D enies Past Surgical History. * Hospitalization/Major Diagno stic Procedure: D enies Past Hospitalization. * Family History: N o Family History documented.. * Social History: G eneral*: S igns of Abuse or Neglect: no. D rug/Alcohol: A JONATHON-C (Standard) D id you have a drink containing alcohol in the past year? N o, P oints 0 , I nterpretation N egative. T obacco Use: T obacco Control (Standard) T obacco use: N onsmoker. * Medications: T aking amLODIPine Besylate 5 MG Tablet Oral , Taking Lisinopril 20 MG Tablet Oral , Taking Cetirizine HCl 10 MG Tablet TAKE 1 TABLET BY MOUTH ONCE DAILY Oral , Taking Vitamin D3 10 MCG (400 UNIT) Capsule TAKE 1 CAPSULE BY MOUTH ONCE DAILY Oral , Medication List reviewed and reconciled with the patient * Allergies: N .K.D.A. Objective: * Vitals: T emp:97.4, Pulse:88, RR:18, BP:110/78, Pain (at time of visit):7/10, LNMP: mp, Ht: 65, Wt: 170, BMI:28.29, Pulse Ox:98. * Examination: F ocused Exam: GENERAL: a lert and oriented x 4, no acute distress, dress appropriate for the environment & temp, well-groomed, appears well. EARS: b ilateral, bubbles visualized behind TM. NOSE p urulent discharge, inflamed mucosa, frontal tenderness, maxillary tenderness. MOUTH AND THROAT: c obblestoning, clear secretions. NECK: n o cervical adenopathy. RESPIRATORY: b reath sounds clear throughout, respiration even and unlabored. CARDIO: S 1 & S2 single sounds, no murmurs, gallops, rubs, or clicks, RRR. PSYCH: f riendly attitude. Assessment: * Assessment: 1. A cute maxillary sinusitis, recurrence not specified - J01.00 (Primary) 2 .?Overweight (BMI 25.0-29.9) - E66.3 3 . H TN (hypertension) - I10 Plan: * Treatment: 2. O verweight (BMI 25.0-29.9) Notes: Continue healthy eating and exercise. May follow up with [employer] dietit[facility] via a telehealth visit at [email or web address] nutrition to help with dietary changes to lower BMI., Learning About Obesity material was published 3. H TN (hypertension) Continue Lisinopril Tablet, 20 MG, Oral; C ontinue amLODIPine Besylate Tablet, 5 MG, Oral. 4. O thers Notes: Amoxicillin and Clavulanic Acid material was published * Procedure Codes: C ODER Sending to Radar Mechanic for Code Review * Preventive Medicine: Counseling: B SD Management: A alea Normal BMI Follow-up D ietary management education, guidance, and counseling , B SD management provided Y es , T zechariah (in minutes) Spent Counseling Patient on BMI 2 . * Follow Up: 5 -7 days if symptoms worsen * Billing Information: * Visit Code: * Procedure Codes: STONE GANG SAWYER Sending to Radar Mechanic for Code Review. Care Plan Details* * Sign off status: Completed true * Provider: Carmel Hurtado Date: Generated for Emily Sanchez on: 09/23/2024 03:50 PM GEAR MACHINIST History and Physical Notes * HPI (History of Present Illness) Category Sub-Category Detail Notes Category Not es Constitutional Presents with sinus congestion, sore throat, bilateral ear pain x 2 weeks Came [place] from [place] 2 months ago and has been struggling with sinus congestion since Medication: mucinex, partha without relief Denies fever Nose. sinusitis management reason for prescribing Antibiotic regimen: medical reason was sinusitis caused due to bacterial in fection? : yes Onset of Symptoms:: 05/31/2025 Depression/Anxiety Screening PHQ-2 (2015 Edition ) Little interest or pleasure in doing things?: Not at all Feeling down, depressed, or hopeless?: N ot at all Total Score: 0 Examination Category Sub-Category Detail Notes Category Not es Focused Exam EARS: bilateral, bubbles visualize d behind TM NOSE purulent discharge, inflamed mucosa, frontal tenderness, maxillary tenderness MOUTH AND THROAT: cobblestoning, clear secretions NECK: no cervical adenopat hy RESPIRATORY: breath sounds clear throughout, respiration even and unlabored GENERAL: alert and oriented x 4, no acute distress, dress appropriate for the environment & temp, well-groomed, appears well PSYCH: friendly attitude CARDIO: S1 & S2 single sound s, no murmurs, gallops, rubs, or clicks, RRR
--- NOTE | 2025-07-24 14:51 | XR_ITS ---
FINAL REPORT CLINICAL HISTORY: injury february 03, 2025 going up stairs, caused pain COMPARISON: None FINDINGS: RIGHT KNEE: Four views of the right knee obtained. There is no acute fracture or dislocation. There is mild narrowing of the medial compartment joint space. There is no soft tissue abnormality. IMPRESSION: Degenerative changes without acute bony abnormality Reviewed, Interpreted and Dictated by Donald Swanson MD Transcribed by Bre Granados Authenticated and [facility]
--- OUTSIDE RECORDS SUMMARY | 2025-07-24 16:50 | XMS_ITS | Clinical Summary ---
Author Organization [facility] Address [address] [place] [address] Care Team Providers Care Art Teacher Name Role Phone Unavailable Primary Care Provider Unavailabl e Social History Tobacco Use Types Packs/Day Years Used Date Smoking Tobacco: Never Assessed Comments Unknown Sex and Gender Information Value Date Recorded Sex Assigned at Not on file Legal Sex Female 2:28 PM EDT Gender Identity Not on file Sexual Orientation Not on file Plan of Treatment Not on file
--- OUTSIDE RECORDS SUMMARY | 2025-07-24 16:50 | XMS_ITS | Clinical Summary ---
Author Organization [facility] Address [address] [place] [address] Care Team Providers Care Photogeologist Name Role Phone Pcp, No Primary Care Provider Unavailabl e Allergies Active Allergy Reactions Criticality Noted Date Comments Other Itching Medium 04/19/2024 Medications amLODIPine (Norvasc) 5 MG tablet Take 1 tablet (5 mg) by mouth 1 (one) time each day. 3 Active lisinopril 20 MG tablet Take 1 tablet (20 mg) by mouth 1 (one) time each day. 3 Active cetirizine (ZyrTEC) 10 MG tablet Take 1 tablet (10 mg) by mouth 1 (one) time each day. 4 Active Cetirizine HCl (Zerviate) 0.24 % solution Administer 1 drop into both eyes 2 (two) times a day. Active Social History Tobacco Use Types Packs/Day Years Used Date Smoking Tobacco: Never Assessed Comments Unknown Sex and Gender Information Value Date Recorded Sex Assigned at Not on file Legal Sex Female 1:19 PM EDT Gender Identity Not on file Sexual Orientation Not on file Last Filed Vital Signs Vital Sign Reading Time Taken Comments Blood Pressure 125/75 04/19/2024 8:29 AM EDT Pulse 70 04/19/2024 8:29 AM EDT Temperature - - Respiratory Rate - - Oxygen Saturation - - Inhaled Oxygen Concentration - - Weight 77.1 kg (170 lb) 04/19/2024 8:29 AM EDT Height 165.1 cm (5' 5 ) 04/19/2024 8:29 AM EDT Body Mass Index 28.29 04/19/2024 8:29 AM EDT Plan of Treatment Health Maintenance Due Date Last Done Comments [facility]-Depression Screening 1960 [facility]-HIV Screening 1960 [facility]-Hepatitis C Screening 1960 [facility]-/Child/Adol SDOH Screenings 1960 [facility]- SDOH Screenings 1979 [facility]-Adult SDOH Screenings 1979 [facility]-Pap Smear 1982 [facility]-Cervical Cancer Screening 1991 [facility]-HPV/Cotest 1991 CT Colonography 2006 Colonoscopy 2006 FIT-DNA 2006 FIT 2006 FOBT 2006 Sigmoidoscopy 2006 [facility]-Colorectal Cancer Screening 2006 [facility]-Breast Cancer Screening 2011 [facility]-Pneumococcal Vaccine: 50 + Years (1 of 1 - PCV) 2011 [id number] Vaccine (3 - season) 2025 08/09/2021, 12/12/2020 [facility]-Influenza Vaccine (#1) 2025 07/22/2022 [facility]-DTaP,Tdap,and Td Vaccine s (2 - Td or Tdap) 03/29/2031 03/29/2021 [facility]-RSV Vaccine: 60+ Years o r (1 - 1-dose 75+ series) 2036 [facility]-Zoster Vaccines Completed 02/19/2023, 09/20/2022 [facility]-Obesity Intervention Completed 024, 04/19/2024 HPV Vaccines Aged Out No longer eligi ble based on patient's age to complete this topic [facility]-HIB Vaccines Aged Out No longer e ligible based on patient's age to complete this topic [facility]-Hepatitis A Vaccines Aged Out No longer eligible based on patient's age to complete this topic [facility]-IPV Vaccines Aged Out No longer e ligible based on patient's age to complete this topic [facility]-Rotavirus Vaccines Aged Out No lo nger eligible based on patient's age to complete this topic Insurance ANTHEM Care Teams Photogeologist Relationship Specialty Start Date End Date Pcp, [place] [address] PCP - General Family Medicine 04/19/24
--- OUTSIDE RECORDS SUMMARY | 2025-07-24 16:50 | XMS_ITS | Patient Health Record ---
Author Organization [facility] Address [facility] [address] [place] [address] Care Team Providers Care Parimutuel Cashier Name Role Phone Kushal Hurtado [phone] Allergies No Known Allergies Reason For Referral No Information Medications Medication SIG (Take, Route, Frequency, Duration) Notes Start Date End Date Status Amoxicillin-Pot Clavulanate 875-125 MG 1 tablet Orally every 12 hrs; Duration: 3 day(s) 06/17/2025 Active Vitamin D3 10 MCG (400 UNIT) TAKE 1 CAPSULE BY MOUTH ONCE DAILY Oral; Duration: 90 Days Active amLODIPine Besylate 5 MG Oral Active Amoxicillin-Pot Clavulanate 875-125 MG 1 tablet Orally twice a day; Duration: 10 days 06/17/2025 Active Lisinopril 20 MG Oral Act emerald Cetirizine HCl 10 MG TAKE 1 TABLET BY MO UT ONCE DAILY Oral; Duration: 90 Days Active Social History Tobacco Use: Social History Observation [...] Status W/U Status Risk Notes Problem Overweight (540944649) Overweight (BMI 25.0-29.9) (E66.3) Active confirmed Problem Hypertension (86935593) HTN (hypertension) (I10) Active confirmed Vital Signs Temperature 97.4 degrees Fahrenheit 06/17/2025 Respiratory Rate 18 /min 06/17/2025 Oximetry 98 06/17/2025 Blood pressure diastolic 78 mm Hg 06/17/2025 Height 65 in 06/17/2025 Blood pressure systolic 110 mm Hg 06/17/2025 Weight 170 lbs 06/17/2025 BMI 28.29 kg/m2 06/17/2025 Encounters Encounter Location Date Provider Diagnosis [address] [id number] 06/17/2025 Kushal Hurtado Overweight (BMI 25.0-29.9) E66.3 ; Acute maxillary sinusitis, recurrence not specified J01.00 and HTN (hypertension) I10 Assessments Encounter Date Diagnosis (ICD Code) Assessment Notes Treatment Notes Treatment Clinical Notes Section Notes 06/17/2025 Acute maxillary sinusitis, recurrence not specified (ICD-10 - J01.00) Complete the entire course of antibiotics as prescribed, even when symptoms have improved, to prevent a relapse of infection and the development of antibiotic resistance. Visit summary given to and discussed with patient and/or parent who verbalizes understanding and agreement with plan of care., Acute Sinusitis: Care Instructions material was published 06/17/2025 Overweight (BMI 25.0-29.9) (ICD-10 - E66.3) Continue healthy eating and exercise. May follow up with [employer] dietit[facility] via a telehealth visit at [email or web address] to help with dietary changes to lower BMI., Learning About Obesity material was published 06/17/2025 HTN (hypertension) (ICD-10 - I10) 06/17/2025 Other Amoxicillin and Clavulanic Acid material was published Plan Of Treatment No Information Insurance Providers Payer Name Payer Address Payer Phone Subscriber Number Group Number Insured Name Patient Relationship to Insured Coverage Start Date Coverage End Date [facility] [address] [place] [address] [id number] Leah Jaeger Self - patient is the insured Medical (General) History Medical History History ICD Code HTN (hypertension) I10
[2025-07-24 20:20] LABS: Vitamin B12 780 pg/mL (239-931)
== END 2025-07-24 23:59 | disposition home or self-care (01) ==
LOC: RAD 14:43
PROVIDERS: PCP Family Medicine; Visit Provider Family Medicine
DX: M17.11 Unilateral primary osteoarthritis, right knee (principal); E53.8 Deficiency of other specified B group vitamins
CPT/HCPCS: 73564; 82607

== ENCOUNTER 2025-09-01 10:23 | Outpatient (CLI) | payer OTHER, SELFPAY ==
--- NOTE | 2025-09-01 10:31 | XR_ITS ---
FINAL REPORT CLINICAL HISTORY: right hip pain FINDINGS: An AP view of the pelvis and a frog leg view of the right hip were obtained. There is no prior exam for comparison. There is no acute fracture or dislocation. Joint space is preserved. Remaining osseous pelvis is without acute abnormality. Soft tissues are unremarkable. IMPRESSION: No acute osseous abnormality of the right hip. Reviewed, Interpreted and Dictated by Angie Marin MD Transcribed by Love Mcghee Authenticated and [facility]
--- OUTSIDE RECORDS SUMMARY | 2025-09-01 10:37 | XMS_ITS | Clinical Summary ---
Author Organization [facility] Address [address] [place] [address] Care Team Providers Care Strike Planning Applications Name Role Phone Unavailable Primary Care Provider [...]
--- OUTSIDE RECORDS SUMMARY | 2025-09-01 10:37 | XMS_ITS | Data Portability ---
Author Organization Count includes the [facility] Address [address] [place] [address] Assessment Encounter Date Assessment Date Assessment LastModified by Organization Details LastModified Time 09/12/2022 09/12/2022 advised to reach out for support groups for dementia for the family- misael calero has one efryman Not available 09/12/2022 13:14:03 Plan of Treatment Reminders Order Date Submit Date Provider Last Modified By Organization Details Last Modified Time Details Appointments None recorded. Lab TSH + free T4, serum 2022 023 DONALD [facility], [address], Tommy [address], [place], [address], 3 11:07:45 vitamin D, 25-hydroxy, total, serum 2022 023 DONALD [facility], [address], [address], [place], [address], 3 11:07:48 CBC w/ auto diff 2022 023 DONALD [facility], [address], [address], [place], [address], 3 11:07:45 CMP, serum or plasma 2022 023 DONALD [facility], [address], [address], [place], [address], 3 11:07:46 lipid panel, serum 2022 023 DONALD [facility], [address], Tommy [address], [place], [address], 3 11:07:47 pap, IG + HPV 2022 023 DONALD [facility], [address], Tommy [address], [place], [address], 3 07:07:34 Referral gynecologis t referral - dr caldwell [phone] 023 DONALD [facility], [address], [address], [place], [address], 3 10:23:38 Procedures None recorded. Surgeries None recorded. Imaging None recorded. Medication Orders albuterol sulfate HFA 90 mcg/actuati on aerosol inhaler 2022 023 [facility] [place], [address], 16:32:33 Patient TargetsNo targets recorded. Patient Instructions Encounter Date Encounter Id Patient Instructions Last Modified By Organization Details Last Modified Time 07/22/2022 [id number] recombinant zoster (shingles) vaccine: what you need to know laina Not available 07/22/2022 13:47:32 Reason for Referral Surgical Services Tech Referral for An terior vaginal wall prolapse dr caldwell [phone] Referring Physician: Woo Vasquez, Family Medicine, Encounter Date: 09/12/2022 Results Created Date Observation Date Name Description Value Unit Range Abnormal Flag Note LastModifiedBy Organization Detail LastModifiedTime 09/12/1909/13/2022 TSH+F REE T4 TSH 1.640 uIU/m L 0.450- 4.500 Not Available [facility] ([facility]) [address] [facility], [place], [address], 09/13/2022 11:07:44 09/12/1909/13/2022 TSH+F REE T4 T4,free(dire ct) 1.53 NG/dL 0.82-1 .77 Not Available [facility] ([facility]) [address] [place], [address], 09/13/2022 11:07:44 09/12/19 23 09/13/2022 CBC WITH DIFFE RENTI AL/PL ATELE T WBC 4.2 x10e3 /uL 3.4-10 .8 Not Available [facility] ([facility]) [address] [facility], [place], [address], 09/13/2022 11:07:45 09/12/19 23 09/13/2022 CBC WITH DIFFE RENTI AL/PL ATELE T RBC 4.85 x10e6 /uL 3.77-5 .28 Not Available [facility] ([facility]) [address] [place], [address], 09/13/2022 11:07:45 09/12/19 23 09/13/2022 CBC WITH DIFFE RENTI AL/PL ATELE T hemoglobin 15.1 g/dL 11.1-1 5.9 Not Available [facility] ([facility]) [address] [place], [address], 09/13/2022 11:07:45 09/12/19 23 09/13/2022 CBC WITH DIFFE RENTI AL/PL ATELE T hematocrit 45.1 % 34.0-4 6.6 Not Available [facility] ([facility]) [address] [place], [address], 09/13/2022 11:07:45 09/12/19 23 09/13/2022 CBC WITH DIFFE RENTI AL/PL ATELE T MCV 93 fL 79-97 Not Available [facility] ([facility]) [address] [place], [address], 09/13/2022 11:07:45 09/12/19 23 09/13/2022 CBC WITH DIFFE RENTI AL/PL ATELE T MCH 31.1 pg 26.6-3 3.0 Not Available [facility] ([facility]) [address] [facility], [place], [address], 09/13/2022 11:07:45 09/12/19 23 09/13/2022 CBC WITH DIFFE RENTI AL/PL ATELE T MCHC 33.5 g/dL 31.5-3 5.7 Not Available [facility] ([facility]) [address] [facility], [place], [address], 09/13/2022 11:07:45 09/12/19 23 09/13/2022 CBC WITH DIFFE RENTI AL/PL ATELE T RDW 13.1 % 11.7-1 5.4 Not Available [facility] ([facility]) [address] [facility], [place], [address], 09/13/2022 11:07:45 09/12/19 23 09/13/2022 CBC WITH DIFFE RENTI AL/PL ATELE T platelets 336 x10e3 /uL 150-45 0 Not Available [facility] ([facility]) [address] [facility], [place], [address], 09/13/2022 11:07:45 09/12/19 23 09/13/2022 CBC WITH DIFFE RENTI AL/PL ATELE T neutrophils 51 % not estab. Not Available [facility] ([facility]) [address] [facility], [place], [address], 09/13/2022 11:07:45 09/12/19 23 09/13/2022 CBC WITH DIFFE RENTI AL/PL ATELE T lymphs 31 % not estab. Not Available [facility] ([facility]) [address] [facility], [place], [address], 09/13/2022 11:07:45 09/12/19 23 09/13/2022 CBC WITH DIFFE RENTI AL/PL ATELE T monocytes 9 % not estab. Not Available [facility] ([facility]) [address] [facility], [place], [address], 09/13/2022 11:07:45 09/12/19 23 09/13/2022 CBC WITH DIFFE RENTI AL/PL ATELE T eos 8 % not estab. Not Available [facility] ([facility]) [address] [facility], [place], [address], 09/13/2022 11:07:45 09/12/19 23 09/13/2022 CBC WITH DIFFE RENTI AL/PL ATELE T basos 1 % not estab. Not Available [facility] ([facility]) [address] [facility], [place], [address], 09/13/2022 11:07:45 09/12/19 23 09/13/2022 CBC WITH DIFFE RENTI AL/PL ATELE T immature cells POLICE DETECTIVE Not Available [facility] ([facility]) [address] [place], [address], 09/13/2022 11:07:45 09/12/19 23 09/13/2022 CBC WITH DIFFE RENTI AL/PL ATELE T neutrophils (absolute) 2.1 x10e3 /uL 1.4-7. 0 Not Available [facility] ([facility]) [address] [facility], [place], [address], 09/13/2022 11:07:45 09/12/19 23 09/13/2022 CBC WITH DIFFE RENTI AL/PL ATELE T lymphs (absolute) 1.3 x10e3 /uL 0.7-3. 1 Not Available [facility] ([facility]) [address] [place], [address], 09/13/2022 11:07:45 09/12/19 23 09/13/2022 CBC WITH DIFFE RENTI AL/PL ATELE T monocytes(ab solute) 0.4 x10e3 /uL 0.1-0. 9 Not Available [facility] ([facility]) [address] [facility], [place], [address], 09/13/2022 11:07:45 09/12/19 23 09/13/2022 CBC WITH DIFFE RENTI AL/PL ATELE T eos (absolute) 0.3 x10e3 /uL 0.0-0. 4 Not Available [facility] ([facility]) [address] [facility], [place], [address], 09/13/2022 11:07:45 09/12/19 23 09/13/2022 CBC WITH DIFFE RENTI AL/PL ATELE T baso (absolute) 0.1 x10e3 /uL 0.0-0. 2 Not Available [facility] ([facility]) [address] [facility], [place], [address], 09/13/2022 11:07:45 09/12/19 23 09/13/2022 CBC WITH DIFFE RENTI AL/PL ATELE T immature granulocytes 0 % not estab. Not Available [facility] ([facility]) [address] [facility], [place], [address], 09/13/2022 11:07:45 09/12/19 23 09/13/2022 CBC WITH DIFFE RENTI AL/PL ATELE T immature grans (abs) 0.0 x10e3 /uL 0.0-0. 1 Not Available [facility] ([facility]) [address] [place], [address], 09/13/2022 11:07:45 09/12/19 23 09/13/2022 CBC WITH DIFFE RENTI AL/PL ATELE T NRBC POLICE DETECTIVE Not Available [facility] ([facility]) [address] [facility], [place], [address], 09/13/2022 11:07:45 09/12/19 23 09/13/2022 CBC WITH DIFFE RENTI AL/PL ATELE T hematology comments: POLICE DETECTIVE Not Available [facility] ([facility]) [address] [facility] [place], [address], 09/13/2022 11:07:45 09/12/19 23 09/13/2022 COMP. METAB OLIC PANEL (14) glucose 91 mg/dL 70-99 Not Available [facility] ([facility]) [address] [facility] [place], [address], 09/13/2022 11:07:46 09/12/19 23 09/13/2022 COMP. METAB OLIC PANEL (14) BUN 10 mg/dL 8-27 Not Available [facility] ([facility]) [address] [facility] [place], [address], 09/13/2022 11:07:46 09/12/19 23 09/13/2022 COMP. METAB OLIC PANEL (14) creatinine 0.77 mg/dL 0.57-1 .00 Not Available [facility] ([facility]) [address] [facility], [place], [address], 09/13/2022 11:07:46 09/12/19 23 09/13/2022 COMP. METAB OLIC PANEL (14) eGFR 88 mL/mi n/1.7 3 >59 Not Available [facility] ([facility]) [address] [facility] [place], [address], 09/13/2022 11:07:46 09/12/19 23 09/13/2022 COMP. METAB OLIC PANEL (14) BUN/creatini ne ratio 13 12-28 Not Available [facility] ([facility]) [address] [facility] [place], [address], 09/13/2022 11:07:46 09/12/19 23 09/13/2022 COMP. METAB OLIC PANEL (14) sodium 142 mmol/ L 134-14 4 Not Available [facility] ([facility]) [address] [facility] [place], [address], 09/13/2022 11:07:46 09/12/19 23 09/13/2022 COMP. METAB OLIC PANEL (14) potassium 4.4 mmol/ L 3.5-5. 2 Not Available [facility] ([facility]) [address] [facility] [place], [address], 09/13/2022 11:07:46 09/12/19 23 09/13/2022 COMP. METAB OLIC PANEL (14) chloride 106 mmol/ L 96-106 Not Available [facility] ([facility]) [address] [facility], [place], [address], 09/13/2022 11:07:46 09/12/19 23 09/13/2022 COMP. METAB OLIC PANEL (14) carbon dioxide, total 23 mmol/ L 20-29 Not Available [facility] ([facility]) [address] [facility], [place], [address], 09/13/2022 11:07:46 09/12/19 23 09/13/2022 COMP. METAB OLIC PANEL (14) calcium 9.4 mg/dL 8.7-10 .3 Not Available [facility] ([facility]) [address] [facility], [place], [address], 09/13/2022 11:07:46 09/12/19 23 09/13/2022 COMP. METAB OLIC PANEL (14) protein, total 7.5 g/dL 6.0-8. 5 Not Available [facility] ([facility]) [address] [place], [address], 09/13/2022 11:07:46 09/12/19 23 09/13/2022 COMP. METAB OLIC PANEL (14) albumin 4.6 g/dL 3.8-4. 8 Not Available [facility] ([facility]) [address] [facility], [place], [address], 09/13/2022 11:07:46 09/12/19 23 09/13/2022 COMP. METAB OLIC PANEL (14) globulin, total 2.9 g/dL 1.5-4. 5 Not Available [facility] ([facility]) [address] [place], [address], 09/13/2022 11:07:46 09/12/19 23 09/13/2022 COMP. METAB OLIC PANEL (14) A/G ratio 1.6 1.2-2. 2 Not Available [facility] ([facility]) [address] [facility] [place], [address], 09/13/2022 11:07:46 09/12/19 23 09/13/2022 COMP. METAB OLIC PANEL (14) bilirubin, total 0.7 mg/dL 0.0-1. 2 Not Available [facility] ([facility]) [address] [place], [address], 09/13/2022 11:07:46 09/12/19 23 09/13/2022 COMP. METAB OLIC PANEL (14) alkaline phosphatase 83 IU/L 44-121 Not Available [facility]) [address] [facility] [place], [address], 09/13/2022 11:07:46 09/12/19 23 09/13/2022 COMP. METAB OLIC PANEL (14) AST (SGOT) 14 IU/L 0-40 Not Available [facility] ([facility]) [address] [facility] [place], [address], 09/13/2022 11:07:46 09/12/19 23 09/13/2022 COMP. METAB OLIC PANEL (14) ALT (SGPT) 11 IU/L 0-32 Not Available [facility] ([facility]) [address] [facility] [place], [address], 09/13/2022 11:07:46 09/12/19 23 09/13/2022 LIPID PANEL cholesterol, total 238 mg/dL 100-19 9 above high normal Not Available [facility] ([facility]) [address] [place], [address], 09/13/2022 11:07:47 09/12/19 23 09/13/2022 LIPID PANEL triglyceride s 147 mg/dL 0-149 Not Available [facility] ([facility]) [address] [place], [address], 09/13/2022 11:07:47 09/12/19 23 09/13/2022 LIPID PANEL HDL cholesterol 63 mg/dL >39 Not Available [facility] ([facility]) [address] [place], [address], 09/13/2022 11:07:47 09/12/19 23 09/13/2022 LIPID PANEL VLDL cholesterol breonna 26 mg/dL 5-40 Not Available [facility] ([facility]) [address] [place], [address], 09/13/2022 11:07:47 09/12/19 23 09/13/2022 LIPID PANEL LDL chol calc ([facility]) 149 mg/dL 0-99 above high normal Not Available [facility] ([facility]) [address] [place], [address], 09/13/2022 11:07:47 09/12/19 23 09/13/2022 LIPID PANEL comment: POLICE DETECTIVE Not Available [facility] ([facility]) [address] [place], [address], 09/13/2022 11:07:47 09/12/19 23 09/13/2022 VITAM IN D, 25-HY DROXY vitamin D, 25-hydroxy 42.4 NG/mL 30.0-1 00.0 Vitam in D defic iency has been defin ed by the [place] [employer] ine and an Endoc rine Socie ty pract ice guide line as a level of serum 25-OH vitam in D less than 20 ng/mL (1,2) . The Endoc rine Socie ty went on to furth er defin e vitam in D insuf ficie ncy as a level betwe en 21 and 29 ng/mL (2). 1. IOM (Inst itute of Medic ine). 2010. Dieta ry refer ence intiris es for calci um and D. Nubia aburto [place]: [facility] Press . 2. Milton k MF, Binkl ey [place], Bisch off-F errar i CRUZ, et al. Evalu ation , treat ment, and preve ntion of vitam in D defic iency : an Endoc rine Socie ty clini breonna pract ice guide line. JCEM. 2010; 96(7) :1911 -30. Not Available [facility] ([facility]) [address] [place], [address], 09/13/2022 11:07:47 09/12/19 23 09/15/2022 IGP, APT HPV,R FX 16/18 ,45 HPV aptima Negati ve negati ve This nucle ic acid ampli ficat ion test detec ts fourt een high- risk HPV types (16,1 8,31, 33,35 ,39,4 5,51, 52,56 ,58,5 9,66, 68) witho ut diffe renti ation . Not Available [facility] ([facility]) [address] [facility], [place], [address], 09/17/2022 07:07:34 09/12/19 23 09/17/2022 IGP, APT HPV,R FX 16/18 ,45 diagnosis: Commen t NEGAT LELAND FOR INTRA EPITH ELIAL LESIO N OR MALIG ROYCE . CELLU LAR MASON ES ASSOC IATED WITH ATROP HY ARE PRESE NT. Not Available [facility] ([facility]) [address] [place], [address], 09/17/2022 07:07:34 09/12/19 23 09/17/2022 IGP, APT HPV,R FX 16/18 ,45 specimen adequacy: Commen t Satis facto ry for evalu ation . Endoc ervic al compo nent may not be disti nguis hed in cases of atrop hy. Not Available [facility] ([facility]) [address] [place], [address], 09/17/2022 07:07:34 09/12/19 23 09/17/2022 IGP, APT HPV,R FX 16/18 ,45 clinician provided ICD10: Cleve dodge I10 R63.5 Z12.4 Not Available [facility] ([facility]) [address] [place], [address], 09/17/2022 07:07:34 09/12/19 23 09/17/2022 IGP, APT HPV,R FX 16/18 ,45 performed by: Cleve villa, Cytot echno logis t (ASCP ) Not Available [facility] ([facility]) [address] [place], [address], 09/17/2022 07:07:34 09/12/19 23 09/17/2022 IGP, APT HPV,R FX 16/18 ,45 QC reviewed by: Cleve Wilson , Cytot echno logis t Not Available [facility] ([facility]) [address] [place], [address], 09/17/2022 07:07:34 09/12/19 23 09/17/2022 IGP, APT HPV,R FX 16/18 ,45 . . Not Available [facility] ([facility]) [address] [place], [address], 09/17/2022 07:07:34 09/12/19 23 09/17/2022 IGP, APT HPV,R FX 16/18 ,45 note: Cleve dodge The Pap smear is a scree korey test desig dov to aid in the detec tion of cayden ligna nt and malig nant condi tions of the uteri ne cervi x. It is not a diagn ostic proce dure and shoul d not be used as the sole means of detec ting cervi breonna cance r. Both false -posi tive and false -nega tive repor ts do occur . Not Available [facility] ([facility]) [address] [facility], [place], [address], 09/17/2022 07:07:34 09/12/19 23 09/17/2022 IGP, APT HPV,R FX 16/18 ,45 test methodology: Commen t This liqui d based ThinP rep(R ) pap test was jameson monae with the use of an image guide janak oro m. Not Available [facility] ([facility]) [address] [facility], [place], [address], 09/17/2022 07:07:34 09/12/19 23 09/07/2022 MAMMO , scree korey, bilat eral No observ ation record ed. [facility] [address] [facility] [address], [place], [address], 09/12/2022 14:47:14 09/16/19 23 09/07/2022 MAMMO , scree korey, bilat eral No observ ation record ed. [facility] ([facility]) [address], [place], [address], 09/19/2022 13:30:35 11/25/19 23 11/24/2022 DEXA No observ ation record ed. [facility] [address], [place], [address], 11/25/2022 10:32:08 Result Notes None recorded. Problems Name Problem SNOMED Code Status Onset Date Resolution Date Notes Provider Name and Address Organization Details Recorded Time Hypertensive disorder 59196034 Active Christa martin [place] - [facility] 11:48:38 Problem Notes None recorded. Procedures Surgical History Date Name Laterality Status Provider Name and Address Organization Details Recorded Time 11/25/19 Most Recent Bone Density completed Gabriella Molina [place] - [facility] 11/24/2022 16:22:23 appendectomy completed Christa Diana [place] - [facility] 09/12/2022 11:09:59 Arthrt acrmclv/strnclav jt completed Christa Diana [place] - [facility] 09/12/2022 11:10:08 Remove tonsils and adenoids completed Christa Diana [place] - [facility] 09/12/2022 11:10:35 procedure on foot completed Christa Diana [place] - [facility] 09/12/2022 11:10:55 Imaging Results None recorded. Procedure Notes None recorded. Medical Equipment None Reported. Allergies Allergen ID Allergen Name Allergen Category Reaction Reaction Severity Criticality Documentation Date Start Date Code Code System Note Provider Name and Address Organization Details Recorded Time 199333 tetanus and diphtheri a toxoids Not available Not available Not available unabletoasse 09/12/2022 Christa martin, [place] - [facility] 10:59:46 Medications Name Sig Start Date Stop Date Status Note LastModified by Organization Details LastModified Time amoxicillin 500 mg capsule active Not Available Not Available Not Available fluconazole 150 mg tablet active Not Available Not Available Not Available hydrocodone 5 mg-acetamin ophen 325 mg tablet active Not Available Not Available No t Available lisinopril 20 mg tablet Take 1 tablet by mouth once daily 2022 active Not Available Not Available Not Avai lable amlodipine 5 mg tablet Take 1 tablet by mouth once daily 2022 active Not Available Not Available Not Avai lable erythromyci n 5 mg/gram (0.5 %) eye ointment APPLY 1/2 INCH RIBBON TO RIGHT AND LEFT UPPER EYELIDS 09/12 completed Not Available Not Available Not Available albuterol sulfate HFA 90 mcg/actuati on aerosol inhaler Inhale 1 puff every 4 hours by inhalatio n route as needed. active Not Available Not Available No t Available phentermine 37.5 mg capsule TAKE 1 CAPSULE BY MOUTH ONCE DAILY MUST ADMINISTE R 30 MINUTES BEFORE OR 1 TO 2 HOURS AFTER BREAKFAST active Not Available Not Available No t Available Myrbetriq 50 mg tablet,exte nded release TAKE 1 TABLET BY MOUTH ONCE DAILY active Not Available Not Available No t Available B12 Active 1,000 mcg chewable tablet Take 1 tablet every day by oral route. active Not Available Not Available No t Available Zerviate 0.24 % eye drops in a dropperette INSTILL 1 DROP INTO EACH EYE TWICE DAILY active Not Available Not Available No t Available calcium 400 mg-vit D3 83.3 mcg-magnesi um 166.7 mg-zinc 16.7 mg capsule Take 1 capsule every day by oral route. active Not Available Not Available No t Available Vitals Date Recorded Body height Body mass index (BMI) Body weight Body temperature Heart rate Oxygen saturation Respiratory rate Pain severity - 0-10 verbal numeric rating [Score] - Reported Systolic And Diastolic Provider Name and Address Organization Details Last Updated DateTime 3 165.1 cm 30.4 kg/m2 94112.6 1 g 97.3 [degF] 78 /min 98 % 18 /min 0 124/80 mm[Hg] Christa Diana [place] - [facility] 3 10:58:51 Social History Question Answer Notes LastModified by Organizat ion Details LastModified Time Tobacco Smoking Status Former Smoker Christa Diana null, [place] - [facility] 09/12/2022 11:07:53 Do You Have An Advance Directive? Yes Information not available 09/12/2022 Are You Blind Or Do You Have Difficulty Seeing? No Information not available 07/22/2022 What Is Your Level Of Caffeine Consumption? Occasional Information not available 09/12/2022 In The 14 Days Before Symptom Onset, Have You Had Close Contact With A Laboratory-confir med COVID-19 While That Case Was Ill? No Information not available 09/12/2022 In The 14 Days Before Symptom Onset, Have You Had Close Contact With A Person Who Is Under Investigation For COVID-19 While That Person Was Ill? No Information not available 09/12/2022 Have You Been To An Area Known To Be High Risk For COVID-19? No Information not available 09/12/2022 Are You Deaf Or Do You Have Serious Difficulty Hearing? No Information not available 07/22/2022 What Type Of Diet Are You Following? VEGAN Information not available 09/12/2022 Have You Processed Blood Or Body Fluids From An Ebola Virus Disease Patient Without Appropriate PPE? No Information not available 09/12/2022 Do You Reside In Or Have You Traveled To An Area Where Ebola Virus Transmission Is Active? No Information not available 09/12/2022 What Is The Highest Grade Or Level Of School You Have Completed Or The Highest Degree You Have Received? [id number] Information not available 09/12/2022 Have There Been Any Changes To Your Family Or Social Situation? No Information no t available 07/22/2022 When Did You Quit Smoking? 16+yearssinerika bennett Quit 30 Yrs Ago Information not available 09/12/2022 Have You Recently Or Are You Planning To Travel To An Area With Zika Virus? No Information not available 09/12/2022 Do You Have A Medical Power Of Ross Lift Operator? No Information not available 09/12/2022 What Was The Date Of Your Most Recent Tobacco Screening? 09/12/2022 Information not available 09/12/2022 What Is Your Relationship Status? Information not available 07/22/2022 Do You Have Smoke And Carbon Monoxide Detectors In Your Home? Yes Information not available 07/22/2022 Has Tobacco Cessation Counseling Been Provided? No Information not available 09/12/2022 Do You Have Difficulty Walking Or Climbing Stairs? No Information not available 07/22/2022 Sex: Female Functional Status Question Answer Note LastModified by Organizat ion Details LastModified Time Do you use any illicit or recreational drugs? No Information not available 09/12/2022 Do you or have you ever used any other forms of tobacco or nicotine? No Information not available 09/12/2022 What is your level of alcohol consumption? None Information not available 09/12/2022 Are you currently employed? No Information not available 09/12/2022 Do you have transportation difficulties? No Information not available 07/22/2022 Are you able to walk independently without assistance or assistive devices? YESWOREST Information not available 07/22/2022 Do you have difficulty doing errands alone? No Information not available 07/22/2022 Are you able to care for yourself independently? Yes Information not available 07/22/2022 Do you have difficulty dressing, bathing, grooming, or toileting? No Information not available 07/22/2022 What is your exercise level? Moderate Information not available 09/12/2022 Mental Status Question Answer Note LastModified by Organization D etails LastModified Time Do you have difficulty concentrating, remembering or making decisions? No Information no t available 07/22/2022 Family History Nothing Reported. Medical History Condition Response Hypertension Y Gynecological History Statement/Question Response Menses Monthly N Abnormal Pap Y If Post Menopausal, Age at Menopause 54 Date of Last Pap Smear Date of Last Mammogram Date of Last Colonoscopy Most Recent Bone Density 11/24/2022 Obstetrics History GPAL:G 4 P 0 4 0 4 Type Value Multiple Births 0 Induced 0 Spontaneous 0 Premature 4 Living 4 Ectopics 0 Total 4 Immunizations Vaccine Type Date Status Note Provider Nam e and Address Organization Details Recorded Time COVID-19 vaccine, vector-nr, rS-Ad26, PF, 0.5 mL 1 completed Gabriella Stears null, [place] - [facility] 07/22/2022 12:05:32 Tdap 1 completed Gabriella Stears null, [place] - [facility] 07/22/2022 12:05:32 MMR 1 completed Christa Lebron null, [place] - [facility] 09/12/2022 10:59:07 MMR 1 completed Christa Le[place] null, [place] - [facility] 09/12/2022 10:59:07 COVID-19 vaccine, vector-nr, rS-Ad26, PF, 0.5 mL 1 completed Gabriella Stears null, [place] - [facility] 07/22/2022 12:05:32 Influenza, split virus, quadrivalent, preservative 2 completed Christa Lebron null, [place] - [facility] 09/12/2022 10:59:07 Past Encounters Encounter ID Performer Location Encounter Start Date Encounter Closed Date Diagnosis/Indication Diagnosis SNOMED-CT Code Diagnosis ICD10 Code Diagnosis IMO Codes Diagnosis Note [id number] Woo Vasquez APRN [address] [address] 07/22/2022 11:44:01 07/22/2022 12:15:07 Influenza vaccine needed 0235674290 106 Z23 Immunization advised 310 340087 Z71.9 [id number] Woo Vasquez APRN [facility] [address] [place] [address] 09/12/2022 10:40:58 09/12/2022 12:21:45 Hypertensive disorder 98864137 I10 Weight gain 1060109 R63. 5 Anterior v aginal wall prolapse 123265952 N81.10 Screening for malignant neoplasm of cervix 252997038 Z12.4 Asthma 293232119 J45.90 9 Health Concerns Section Related Observation LastModified by Organization Detai ls LastModified Time None Recorded Concern Status LastModified by Organization Details LastModified Time None Recorded Advance Directives Directive Y: Payers Insurance Date Sequence Insurance Name Policy Number Policy Moya Covered Member ID Moya Member ID Guarantor Name 09/12/2022 1 [facility] (MEDICAID REPLACEMENT - [place]) [id number] Noeline Fernanda-Tyrell bot [id number] Noeline Fernanda-Talbo t 03/11/2023 1 [facility] [id number] Noeline Fernanda-Tyrell bot [id number] Noeline Fernanda-Talbo t 03/10/2023 [place] [id number] Noeline Fernanda-Tyrell bot [id number] Noeline Fernanda-Talbo t 09/14/2022 [id number] Noeline Fernanda-Tyrell bot [id number] Noeline Fernanda-Talbo t 09/12/2022 2 [facility] [place] Noeline Fernanda-Tyrell bot [id number] Noeline Fernanda-Talbo t Notes Date Note Type Note Provider Name and Address Organization Details Recorded Time 07/22/2022 text/html flu injection Woo Vasquez APRN [address], [place], [address], [place] - [facility] 07/22/2022 13:47:44 09/12/2022 text/html 62 yr old female presents for pap smear and lab work. pt states she has gained weight and would like her thyroid checked. pt states she is having alot of stress with her going though testing for memory losspt states history of hpv and cryo ablationpt states she needs her inhaler refilled Woo Vasquez, OWNER/OPERATOR [address], [place], [address], [place] - [facility] 09/16/2022 09:49:46 OBGyn Episode No OBEpisode recorded.
--- OUTSIDE RECORDS SUMMARY | 2025-09-01 10:37 | XMS_ITS | Clinical Summary ---
Author Organization Healthcare Address [address] [place] [address] Care Team Providers Care Moth Proofer Name Role Phone Pcp, No Primary Care [...] [facility]-HPV/Cotest 1991 CT Colonography 2006 Colonoscopy 2006 FIT 2006 FOBT 2006 Sigmoidoscopy 2006 [facility]-Breast Cancer Screening 2011 [facility]-Pneumococcal Vaccine: 50 + Years (1 of 1 - PCV) 2011 [id number] Vaccine (3 - 2024- season) 2025 08/09/2021, 12/12/2020 [facility]-Influenza Vaccine (#1) 2025 07/22/2022 FIT-DNA 11/28/2026 11/29/2023, 11/03/2020 [facility]-Colorectal Cancer Screening 11/28/2026 [facility]-DTaP,Tdap,and Td Vaccine s (2 - Td or Tdap) 03/29/2031 03/29/2021 [facility]-RSV Vaccine: 60+ Years o r (1 - 1-dose 75+ series) 2036 [facility]-Zoster Vaccines Completed 02/19/2023, 09/20/2022 [facility]-Obesity Intervention Completed 024, 04/19/2024 HPV Vaccines (No Doses Required) Completed [facility]-HIB Vaccines Aged Out No longer e [...] complete this topic Insurance ANTHEM Care Teams Moth Proofer Relationship Specialty Start Date End Date Pcp, [place] [address] PCP - General Family Medicine 04/19/24
== END 2025-09-01 23:59 ==
LOC: RAD 10:25
PROVIDERS: PCP Family Medicine; Visit Provider Physician Assistant Surgical
DX: M17.11 Unilateral primary osteoarthritis, right knee (principal)
CPT/HCPCS: 73502